=== PATIENT | male | born 1995 | race Caucasian/White ===

== ENCOUNTER 2017-01-11 07:07 | Emergency (ER) | payer OTHER ==
[2017-01-11 07:17] VITALS: BP 154/85
--- NOTE | 2017-01-11 07:39 | UC ---
Throat Pain/Nasal Eligio HPI - HPI Summary HPI Summary: 21 [address] Pt states that approx 01/08/17 he began having a a sore throat. The next day 01/09/17 he began having fever and body aches. Pt states symptoms persist. [ End ] - History of Current Complaint Chief Complaint: UCGeneralIllness Stated Complaint: SORE THROAT Time Seen by Provider: 01/11/17 07:22 Hx Obtained From: Patient Onset/Duration: Sudden Onset Severity: Moderate Cough: Nonproductive - Allergies/Home Medications Allergies/Adverse Reactions: Allergies Allergy/AdvReac Type Severity Reaction Status Date / Time No Known Allergies Allergy Verified 01/11/17 07:17 Home Medications: Home Medications Cetirizine* [ZyrTEC 10 MG TAB*] 10 mg PO DAILY 01/11/17 [History Confirmed 01/11] Diphenhydramine HCl [Benadryl Allergy] 25 mg PO BEDTIME 01/11/17 [History Confirmed 01/11/17] Ygyrbufmquxnx-Cmbpjhoovh-Hgwna [Vicks Dayquil/Nyquil Cold] 2 tab PO Q4HR PRN [History Confirmed 01/11/17] PMH/Surg Hx/FS Hx/Imm Hx Previously Healthy: Yes - Surgical History Surgical History: Yes Surgery Procedure, Year, and Place: SINUS SURGERY, WISDOM TEETH EXTRACTION - Family History Known Family History: Positive: Other - PUD to mother Negative: Hypertension, Blood Disorder - no bleeding disorders - Social History Occupation: Employed Full-time Lives: With Family Alcohol Use: None Alcohol Amount: Very rare Substance Use Type: None Smoking Status (MU): Never Smoked Tobacco Have You Smoked in the Last Year: No Household Exposure Type: Cigarettes - Immunization History Most Recent Influenza Vaccination: 11/2016 Most Recent Tetanus Shot: up to date Review of Systems Constitutional: Negative ENT: Sore Throat Is Patient Immunocompromised?: No All Other Systems Reviewed And Are Negative: Yes Physical Exam Triage Information Reviewed: Yes Appearance: Well-Appearing, No Pain Distress, Well-Nourished Vital Signs: Initial Vital Signs Temp 99.1 F 01/11/17 07:12 Pulse 68 01/11/17 07:12 Resp 16 01/11/17 07:12 BP 154/85 01/11/17 07:12 Pulse Ox 99 01/11/17 07:12 Vital Signs Reviewed: Yes Eye Exam: Normal ENT Exam: Normal ENT: Positive: Pharyngeal erythema, Tonsillar swelling - mild, Tonsillar exudate - mild Dental Exam: Normal Neck exam: Normal Neck: Positive: 1 Respiratory Exam: Normal Cardiovascular Exam: Normal Musculoskeletal Exam: Normal Neurological Exam: Normal Psychological Exam: Normal Skin Exam: Normal Throat Pain/Nasal Course/Dx - Differential Dx/Diagnosis Differential Diagnosis/HQI/PQRI: Pharyngitis, Tonsillitis, URI Provider Diagnoses: Strep Throat Discharge - Discharge Plan Condition: Good Disposition: HOME Prescriptions: Amoxicillin PO (*) [Amoxicillin 500 MG CAP*] 500 mg PO Q12H #20 cap Patient Education Materials: Strep Throat (ED) Referrals: No Primary Care Phys,NOPCP [Primary Care Provider] - If Needed
== END 2017-01-11 07:52 | disposition home or self-care (01) ==
LOC: UCEAST 07:07
DX: J02.0 Streptococcal pharyngitis (principal)
CPT/HCPCS: 87651; 99212; G0463